=== PATIENT | female | born 1990 | race African-American/Black ===

== ENCOUNTER 2022-02-04 17:49 | Emergency (ER) | payer OTHER ==
[2022-02-04 17:56] VITALS: BP 126/84; PULSE 86; TEMP 98; BMI 32.5
== END 2022-02-04 21:55 | disposition home or self-care (01) ==
LOC: JERFT 17:49
DX: S01.511A Laceration without foreign body of lip, initial encounter (principal); Y04.8XXA Assault by other bodily force, initial encounter
CPT/HCPCS: 70486-TC; 99284-25

== ENCOUNTER 2024-08-21 04:26 | Day surgery (SDC) | payer OTHER ==
[2024-08-18 13:35] VITALS: BMI 31.7
[2024-08-21] MEDS ORDERED: LIDOCAINE HCL/PF 2% SDV 5ML VIAL ONE (08:24)
[2024-08-21] MEDS ORDERED: PROPOFOL 20 ML ONE (08:24)
[2024-08-21] MEDS ORDERED: MIDAZOLAM HCL 2 MG/2 ML SINGLE DOSE VIAL ONE (08:24)
[2024-08-21] MEDS ORDERED: ACETAMINOPHEN 325 MG TABLET (FP) PO PRN (09:25)
[2024-08-21] MEDS ORDERED: IBUPROFEN 400 MG TABLET (FP) PO PRN (09:25)
[2024-08-21] MEDS ORDERED: oxyCODONE HCL 5 MG TABLET PO PRN ×2 (09:25→10:44)
[2024-08-21] MEDS ORDERED: KETOROLAC TROMETHAMINE 30 MG/1 ML VIAL ONE (09:48)
[2024-08-21] MEDS ORDERED: ONDANSETRON 4 MG/2 ML VIAL ONE (09:48)
[2024-08-21] MEDS ORDERED: DEXAMETHASONE SOD PHOSPHATE 4 MG/1 ML VIAL ONE (09:48)
[2024-08-21] MEDS ORDERED: PROMETHAZINE HCL 25 MG/1 ML VIAL IVPB PRN (10:44)
[2024-08-21] MEDS ORDERED: ONDANSETRON 4 MG/2 ML VIAL IVPUSH PRN (10:44)
[2024-08-21] MEDS ORDERED: LACTATED RINGERS SOLUTION 1,000 ML IV SCH (10:45)
[2024-08-21] MEDS ORDERED: ACETAMINOPHEN INJECTION 100 ML ONE (10:58)
[2024-08-21] MEDS: ACETAMINOPHEN 1000 MG/100 ML BAG IVPB ONE (11:00)
[2024-08-21 12:54] VITALS: PULSE 62; RESP 20
[2024-08-21 14:06] VITALS: BP 120/75; TEMP 98.7
== END 2024-08-21 14:11 | disposition home or self-care (01) ==
LOC: JASU-SURG 04:26
PROVIDERS: ATTEND Obstetrics & Gynecology
PROC: 0UDB8ZX Extraction of Endometrium, Via Natural or Artificial Opening Endoscopic, Diagnostic (ICD-10-PCS; principal; 2024-08-21 08:30)
DX: N84.1 Polyp of cervix uteri (principal); N84.0 Polyp of corpus uteri
CPT/HCPCS: 81025; 88305-TC; 94760; J0131